=== PATIENT | female | born 2000 | race Hispanic/Latino ===

== ENCOUNTER 2023-05-01 16:40 | Emergency (ER) | payer MEDICAID, OTHER ==
[~2023-05-01] VITALS: Ht 147.3 cm; Wt 54.4 kg
[2023-05-01] MEDS ORDERED: METH4TAB3 PO (20:34)
[2023-05-01 20:36] VITALS: BP 110/62
== END 2023-05-01 20:45 | disposition home or self-care (01) ==
LOC: EDH 16:40
DX: B34.9 Viral infection, unspecified (principal); R07.0 Pain in throat; Z20.822 Contact with and (suspected) exposure to COVID-19; Z88.8 Allergy status to other drugs, medicaments and biological substances
CPT/HCPCS: 99283; 87635; 87880; 87804 ×2; C9803

== ENCOUNTER 2024-09-21 09:30 | Emergency (ER) | payer SELFPAY ==
[~2024-09-21] VITALS: Ht 147.3 cm; Wt 61.2 kg
[~2024-09-21 09:30] MED LIST: METH4TAB3 PO
[2024-09-21 09:31] VITALS: BP 124/88; PULSE 68; RESP 16; TEMP 98.1; O2SAT 98
--- NOTE | 2024-09-21 09:40 | NUR ---
PT JUST PLACED IN MY ED BED HALLWAY B
[2024-09-21] MEDS ORDERED: EPIN0.3P2 IM (09:54)
--- NOTE | 2024-09-21 09:54 | ERN ---
ED Note History of Present Illness Stated Complaint: RASH Chief Complaint: Skin Rash/Abscess Time Seen by MD: 09:36 Dictation: 24-year-old female with hives intermittently over the past few days, happened before in the past. No nausea vomiting diarrhea or shortness of breath. Patient reports some improvement with [id number] medicine. 03/27 and improving. Allergies: Coded Allergies: brompheniramine (Unverified Allergy, Unknown, 05/01/23) cetirizine (Unverified Allergy, Unknown, 05/01/23) famotidine (Unverified Allergy, Unknown, 05/01/23) phenylephrine (Unverified Allergy, Unknown, 05/01/23) pseudoephedrine (Unverified Allergy, Unknown, 05/01/23) Home Meds Active Scripts Methylprednisolone (Medrol) 4 Mg Tab.ds.pk, 4 MG PO DAILY, #1 PACK 0 Refills Prov:JUVE PENDLETON BEV 05/01/23 Past Medical History Past Medical History: No Pertinent History Surgical History: None Family History: Negative Social History: Negative, Lives with family LMP: Sep 21, 2024 : 0 Para: 0 Aborts: 0 Review of System Dictation Constitutional: Negative for fever,chills, and weight loss Eyes: Negative for injury, pain,redness, and discharge ENT: Negative for injury,pain or swelling Cardiovascular: Negative for chest pain, palpitations, and edema Respiratory: Negative for shortness of breath, cough, and wheezing, Abdomen/GI: Negative for abdominal pain, nausea, vomiting, diarrhea, and constipation Back: Negative for injury and pain : Negative for injury, bleeding and discharge MS/Extremity: Negative for injury and deformity Skin: Per HPI Neuro: Negative for headache, weakness, numbness, tingling, and seizure Psych: Negative for suicide ideation, homicidal ideation, and hallucinations Initial Vital Sign VS Vital Signs Date Time Temp Pulse Resp B/P (MAP) Pulse Ox O2 Delivery O2 Flow Rate FiO2 09/21/24 09:31 98.1 68 16 124/88 98 Room Air* 0 21 Physical Exam Dictation General: awake, alert, NAD Head/Face: Normocephalic, atraumatic Eyes: PERRL, EOMI, vision at baseline ENT: oral cavity clear, TMs clear, no signs of infection Neck: Trachea midline, supple, no nuchal rigidity Cardiovascular: RRR, normal S1/S2, No MRGs, no JVD Respiratory: CTAB, no respiratory distress, No rales or wheezes Abdomen: Soft, non-tender, non-distended, normal bowel sounds, no guarding or rebound. Skin: Warm, dry, normal turgor, mild hives MS/Extremity: Pulses equal, no cyanosis, neurovascular intact, FROM Neuro: COAx4, GCS 15, strength 5/5, CN 2-12 intact, normal cerebellar exam, normal gait, Psych: Normal behavior, mood, and affect normal ED Course ED Course Orders Procedure Category Date Status Time Dexamethasone 4mg/Ml PHA 09/21/24 Transmitted 1ml Vial (Dexametha 10:00 Vital Signs Date Time Temp Pulse Resp B/P (MAP) Pulse Ox O2 Delivery O2 Flow Rate FiO2 09/21/24 09:31 98.1 68 16 124/88 Room Air 0 09/21/24 09:31 98.1 68 16 124/88 98 Room Air* 0 21 Medical Decision Making MDM MDM: Differential diagnosis: Rationale: Tests considered and ordered secondary to shared decision making include: Previous outside records reviewed: Old ER visits. Risk of complication and/or morbidity or mortality of patient management: None Medications-Per medication reconciliation Need for hospitalization: Patient does not meet criteria for hospitalization. Need for emergency major/minor surgery: No There are no social concerns with this patient. Prescription drug management Prescriptions will include symptomatic care No signs of anaphylaxis stable for discharge with prescriptions. DX & DISP Disposition: Discharge Departure Impression: Primary Impression: Acute allergic reaction Condition: Stable Scripts Epinephrine (Epipen) 0.3 Mg/0.3 Ml Auto.injct 0.3 ML IM AD, #0.3 ML 0 Refills Prov: SAM LAKHANI MD 09/21/24 Referrals: JORDI MORTON MD (PCP) SAM LAKHANI MD Sep 21, 2024 09:54
[2024-09-21] MEDS: dexaMETHasone SOD PHOSPHATE 4 MG/ML 1ML VIAL IM ONE (10:02)
== END 2024-09-21 10:33 | disposition home or self-care (01) ==
LOC: EDH 09:30
DX: L25.8 Unspecified contact dermatitis due to other agents (principal); T50.905A Adverse effect of unspecified drugs, medicaments and biological substances, initial encounter; Z79.52 Long term (current) use of systemic steroids; Y92.89 Other specified places as the place of occurrence of the external cause
CPT/HCPCS: 99283; 96372; J1100